=== PATIENT | female | born 2000 | race Caucasian/White ===

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

== ENCOUNTER 2020-03-04 17:30 | Emergency (ER) | payer OTHER ==
[~2020-03-04] VITALS: Ht 167.6 cm; Wt 68.0 kg
[2020-03-04 17:46] VITALS: Ht 167.6 cm; Wt 68.0 kg
[2020-03-04 18:42] LABS: BASOPHIL % 0.4 % (0-2); PLATELET COUNT 264 x10^3mcL (130-400); RED CELL DISTRIBUTION WIDTH 12.7 % (11.5-14.5)
[2020-03-04 18:57] LABS: CALCIUM 8.8 mg/dL (8.5-10.1); CARBON DIOXIDE 26.6 mmol/L (21-32); CHLORIDE SERUM 103 mmol/L (98-107); CREATININE SERUM 0.7 mg/dL (0.6-1.0); GFR1 > 60 mL/min; GLUCOSE SERUM 88 mg/dL (74-106); POTASSIUM SERUM 3.4 mmol/L (3.5-5.1); SODIUM SERUM 137 mmol/L (136-145)
[2020-03-04 20:27] VITALS: BP 122/64
== END 2020-03-04 20:27 | disposition home or self-care (01) ==
LOC: ED 17:30
PROVIDERS: Emergency Medicine
DX: R55 Syncope and collapse (principal); R10.30 Lower abdominal pain, unspecified
CPT/HCPCS: J1885